=== PATIENT | female | born 2000 | race Caucasian/White ===

== ENCOUNTER 2023-01-28 03:05 | Emergency (ER) | payer MEDICAID ==
[~2023-01-28] VITALS: Ht 152.4 cm; Wt 70.0 kg
[2023-01-28 03:22] VITALS: BP 110/60
== END 2023-01-28 11:01 | disposition left against medical advice (07) ==
LOC: ER 03:05
DX: R10.13 Epigastric pain (principal); Z90.49 Acquired absence of other specified parts of digestive tract
CPT/HCPCS: 99281